=== PATIENT | female | born 1995 | race Caucasian/White ===

== ENCOUNTER 2016-09-28 03:09 | Emergency (ER) | payer SELFPAY ==
[2016-09-28 03:26] VITALS: BMI 21.5
[2016-09-28 03:41] VITALS: BP 125/72; PULSE 78; RESP 17; TEMP 98.2; O2SAT 100
[2016-09-28 04:49] LABS: BASO # 0.1 K/uL (0.0-0.2); BASO % 0.7 % (0.0-2.0); EOS % 0.6 % (0.0-4.0); HEMATOCRIT 37.5 % (34.0-47.0); LYMPH # 2.5 K/uL (1.0-4.3); LYMPH % 30.7 % (20.0-40.0); MEAN CELL VOLUME 92.3 fl (81.0-99.0); MEAN CORPUSCULAR HGB CONC 33.6 g/dL (33.0-37.0); MEAN PLATELET VOLUME 9.2 fl (7.2-11.7); MONO # 0.5 K/uL (0.0-0.8); MONO % 6.8 % (0.0-10.0); NEUT # 4.9 K/uL (1.8-7.0); NEUT % 61.2 % (50.0-75.0); NRBC % 0.1 % (0.0-0.0); RED CELL DISTRIBUTION WIDTH 12.9 % (11.5-14.5)
[2016-09-28 05:03] LABS: BLOOD UREA NITROGEN 18 mg/dl (7-17); CALCIUM 9.3 mg/dL (8.4-10.2); CARBON DIOXIDE 26 mmol/L (22-30); CHLORIDE 106 mmol/L (98-107); GFR AFRICAN-AMERICAN > 60; GLUCOSE,RANDOM 89 mg/dL (65-105); POTASSIUM 4.8 MMOL/L (3.6-5.0); SODIUM 141 mmol/l (132-148)
--- NOTE | 2016-09-28 05:38 | ED PDOC ---
HPI: Abdomen Time Seen by Provider: 09/28/16 03:57 Chief Complaint (Nursing): Abdominal Pain Chief Complaint (Provider): Left-Sided Abdominal Pain History Per: Patient History/Exam Limitations: no limitations Onset/Duration Of Symptoms: Days (x1) Location Of Pain/Discomfort: LLQ Additional Complaint(s): 3:57 Madina Abreu is a 21 year old female with a history of ovarian cysts that presents to the ED with a chief complaint of constant left-sided lower abdominal pain. Patient states that the pain does not worsen with anything, and denies any dysuria, fever, vomiting, or diarrhea. Past Medical History Reviewed: Historical Data, Nursing Documentation, Vital Signs Vital Signs: Last Vital Signs Temp 98.2 F 09/28/16 03:38 Pulse 78 09/28/16 03:38 Resp 17 09/28/16 03:38 BP 125/72 09/28/16 03:38 Pulse Ox 100 09/28/16 06:38 - Medical History PMH: Asthma (childhood asthma) Other PMH: ovarian cysts - Surgical History Surgical History: No Surg Hx - Family History Family History: States: Unknown Family Hx, Hypertension - Home Medications Home Medications: Ambulatory Orders Medication Instructions Recorded Ibuprofen [Motrin] 600 mg PO TID 7 Days 04/19/16 Nitrofurantoin Macrocrystals 100 mg PO BID #10 cap 04/19/16 [Macrobid] Nitrofurantoin Macrocrystals 100 mg PO BID #14 cap 09/28/16 [Macrobid] - Allergies Allergies/Adverse Reactions: Allergies Allergy/AdvReac Type Severity Reaction Status Date / Time No Known Allergies Allergy Verified 04/04/14 17:15 Review of Systems Constitutional: Negative for: Fever Gastrointestinal: Positive for: Abdominal Pain (llq). Negative for: Vomiting, Diarrhea Genitourinary Female: Negative for: Dysuria Physical Exam - Reviewed Nursing Documentation Reviewed: Yes Vital Signs Reviewed: Yes - Physical Exam Appears: Positive for: Non-toxic, No Acute Distress Head Exam: Positive for: ATRAUMATIC, NORMOCEPHALIC Skin: Positive for: Normal Color, Warm, Dry Eye Exam: Positive for: Normal appearance, EOMI, PERRL Cardiovascular/Chest: Positive for: Regular Rate, Rhythm. Negative for: Murmur Respiratory: Positive for: Normal Breath Sounds. Negative for: Wheezing (SAS) Gastrointestinal/Abdominal: Positive for: Soft, Tenderness (mild suprapubic tenderness and LLQ tenderness) Neurologic/Psych: Positive for: Alert, Oriented - Laboratory Results Result Diagrams: 09/28/16 04:45 09/28/16 04:45 - ECG O2 Sat by Pulse Oximetry: 100 (RA) Pulse Ox Interpretation: Normal Medical Decision Making Medical Decision Makin:15 Initial Impression: Ovarian Cysts vs. Torsion vs. UTI Initial Plan: * Urine dip * Urine preg 4:35 Patient does have a UTI as indicated by elevated nitrate levels. Ordering US Pelvis/Transvaginal to check for ovarian cysts. Urine negative. 6:37 US Pelvis Results FINDINGS: No visualized myometrial mass. The endometrium is not visualized. There is a 1.5 x 2.3 x 1.7 cm anechoic RIGHT ovarian cyst. No RIGHT ovarian torsion. There are small follicles in the LEFT ovary. There are no adnexal masses. There is no free fluid in the pelvis. IMPRESSION: There is a 1.5 x 2.3 x 1.7 cm anechoic RIGHT ovarian cyst. US Pelvis Transvaginal Results FINDINGS: Uterus/cervix: The endometrium is 7.5 mm thick. There is a trace amount of fluid in the cervical endometrial canal. No myometrial mass. Right ovary: There is anechoic 1.9 x 2 x 2 cm RIGHT ovarian cyst. No torsion. Left ovary: Unremarkable. No mass. No torsion. Free fluid: No free fluid. IMPRESSION: 1. There is anechoic 1.9 x 2 x 2 cm RIGHT ovarian cyst. 2. There is a trace amount of fluid in the cervical endometrial canal. This is a nonspecific finding and is likely of no clinical significance Scribe Attestation: Documented by Zo Gipson, acting as a scribe for Anne-Marie Whitney MD. Provider Scribe Attestation: All medical record entries made by the Scribe were at my direction and personally dictated by me. I have reviewed the chart and agree that the record accurately reflects my personal performance of the history, physical exam, medical decision making, and the department course for this patient. I have also personally directed, reviewed, and agree with the discharge instructions and disposition. Disposition - Clinical Impression Clinical Impression: UTI (urinary tract infection) - Patient ED Disposition Is Patient to be Admitted: No Doctor Will See Patient In The: Office Counseled Patient/Family Regarding: Studies Performed, Diagnosis, Need For Followup - Disposition Referrals: [facility] [place] [Outside] Disposition: Routine/Home Disposition Time: 06:50 Condition: GOOD Additional Instructions: Return for worsening. Follow up with your PCP in 2-3 days. Prescriptions: Nitrofurantoin Macrocrystals [Macrobid] 100 mg PO BID #14 cap Instructions: Urinary Tract Infection in Women (DC)
--- NOTE | 2016-09-28 09:55 | US ---
HISTORY: left pelvic pain COMPARISON: 04/19/2016 TECHNIQUE: Real-time transabdominal and transvaginal ultrasound examination of the pelvis was performed. FINDINGS: UTERUS: Measures 7.0 x 4.1 x 5.2 cm. Normal in size and appearance. No fibroid or other mass lesion seen. ENDOMETRIUM: Measures 7 mm in diameter. Unremarkable. CERVIX: No cervical masses are seen. Minimal amount of nonspecific fluid is seen in the endocervical canal, probably physiologic in a patient of this age. This could be further correlated clinically. RIGHT OVARY: Measures 2.9 x 2.6 x 2.8 cm. There is a 2 centimeter x 1.9 centimeter x 2 centimeter simple hypoechoic right ovarian cyst without internal echoes. Normal flow. LEFT OVARY: Measures 3 x 1.4 x 1.5 cm. No solid mass. Normal flow. FREE FLUID: No significant free fluid noted. OTHER FINDINGS: None. IMPRESSION: Small right ovarian simple cyst probably representing follicular cyst. No ultrasound evidence of torsion.
== END 2016-09-28 07:17 | disposition home or self-care (01) ==
LOC: H.ER 03:09
DX: N39.0 Urinary tract infection, site not specified (principal)

== ENCOUNTER 2016-12-02 18:35 | Emergency (ER) | payer BC ==
[2016-12-02 18:35] VITALS: BMI 21.5
[2016-12-02 18:42] VITALS: BP 113/58; PULSE 76; RESP 18; TEMP 98.6; O2SAT 98
--- NOTE | 2016-12-02 19:05 | ED PDOC ---
HPI: Female Pain Time Seen by Provider: 12/02/16 18:47 Chief Complaint (Nursing): Female Genitourinary Chief Complaint (Provider): Vaginal bleeding History Per: Patient History/Exam Limitations: no limitations Onset/Duration Of Symptoms: Days Current Symptoms Are (Timing): Still Present Severity: Moderate Pain Scale Rating Of: 5 Additional Complaint(s): Suprapubic pressure. Dysuria for 2 days. No fever/chills. No back pain. Past Medical History Reviewed: Historical Data, Nursing Documentation, Vital Signs Vital Signs: Last Vital Signs Temp 98.6 F 12/02/16 18:36 Pulse 76 12/02/16 18:36 Resp 18 12/02/16 18:36 BP 113/58 L 12/02/16 18:36 Pulse Ox 98 12/02/16 18:36 - Medical History PMH: Asthma (childhood asthma) - Surgical History Surgical History: No Surg Hx - Family History Family History: States: Unknown Family Hx, Hypertension - Living Arrangements Living Arrangements: With Family - Social History Current smoker - smoking cessation education provided: No - Home Medications Home Medications: Ambulatory Orders Medication Instructions Recorded Ibuprofen [Motrin] 600 mg PO TID 7 Days 04/19/16 Nitrofurantoin Macrocrystals 100 mg PO BID #10 cap 04/19/16 [Macrobid] Nitrofurantoin Macrocrystals 100 mg PO BID #14 cap 09/28/16 [Macrobid] Ciprofloxacin [Cipro] 500 mg PO BID #10 tab 12/02/16 - Allergies Allergies/Adverse Reactions: Allergies Allergy/AdvReac Type Severity Reaction Status Date / Time No Known Allergies Allergy Verified 04/04/14 17:15 Review of Systems ROS Statement: Except As Marked, All Systems Reviewed And Found Negative Genitourinary Female: Positive for: Dysuria, Frequency. Negative for: Vaginal Bleeding, Pelvic Pain Musculoskeletal: Positive for: Back Pain Physical Exam - Reviewed Nursing Documentation Reviewed: Yes Vital Signs Reviewed: Yes - Physical Exam Appears: Positive for: Well, Non-toxic, No Acute Distress Head Exam: Positive for: ATRAUMATIC, NORMAL INSPECTION, NORMOCEPHALIC Skin: Positive for: Normal Color, Warm, DRY Eye Exam: Positive for: Normal appearance ENT: Positive for: Normal ENT Inspection Neck: Positive for: Normal, Painless ROM Cardiovascular/Chest: Positive for: Regular Rate, Rhythm Respiratory: Positive for: Normal Breath Sounds. Negative for: Accessory Muscle Use, Respiratory Distress Gastrointestinal/Abdominal: Positive for: Normal Exam, Bowel Sounds, Soft. Negative for: Tenderness Back: Positive for: Normal Inspection. Negative for: L CVA Tenderness, R CVA Tenderness Extremity: Positive for: Normal ROM Neurologic/Psych: Positive for: Alert, Oriented - ECG O2 Sat by Pulse Oximetry: 98 Pulse Ox Interpretation: Normal Disposition - Clinical Impression Clinical Impression: UTI (urinary tract infection) - Patient ED Disposition Is Patient to be Admitted: No Counseled Patient/Family Regarding: Diagnosis, Need For Followup, Rx Given - Disposition Referrals: Former[facility] [place] [Outside] Disposition: Routine/Home Disposition Time: 19:45 Condition: GOOD Prescriptions: Ciprofloxacin [Cipro] 500 mg PO BID #10 tab Instructions: Urinary Tract Infection in Women (ED)
== END 2016-12-02 20:05 | disposition home or self-care (01) ==
LOC: H.ER 18:35
DX: N39.0 Urinary tract infection, site not specified (principal)

== ENCOUNTER 2017-06-20 20:20 | Emergency (ER) | payer BC, MEDICAID, OTHER ==
[2017-06-20 21:00] VITALS: BMI 25.3
[2017-06-21 01:38] VITALS: BP 120/68; PULSE 85; RESP 16; TEMP 98.8; O2SAT 100
--- NOTE | 2017-06-21 07:51 | OBHP ---
Datetime: 06/20/2017 20:45 IP Adm Impression: , intrauterine ; No Active Labor IP Admit Plan: Observation/Evaluation; Discharge home Admit Comment, IP Provider: Patient IUP 31.2 weeks presents c/o cramping lower abdominal pain s elizabeth last night, no radiated, no associated with any event. No lof, ctx, vb, +FM. Denies recent fever , nausea, vomiting, no urinary symptoms, diarrhea, no fall or trauma. PNC: [facility] PMH: Asthma. FMH: denies PSH: none Meds: PNV, Iron. NKDA SH: -etoh, tobacco, drugs. VS: wnl VE: closed/thick/high. TOCO: 150/mod eric/15 x 15/ cat I/ no dec A/P: Patient IUP 31.2 weeks with lower abd pain, no active labor. /maternal monitoring. Reeval. Case discussed with Dr Nguyen, OB hospitalist shoulder boner. [place] PGY 1. Addendum by Dr. Nguyen: I have evaluated the patient independently and I agree with the above. Fay geronimo is a 31.3 wks with lower abdominal pain, no other signs of labor. VE=closed/thick/high, FHR= 150 mod eric, =accels, TOCO = irritability. Patient ruled out for labor and chorio, discharge home, la bor precautions given Pelvic Type - PN: Adequate Extremities - PN: Normal Abdomen - PN: Normal Back - PN: Not Done Breast - PN: Not Done Lungs - PN: Normal Heart - PN: Normal Thyroid - PN: Normal Neurologic - PN: Normal HEENT - PN: Normal General - PN: Normal FHR - Baseline A Provider: 150 EGA AdmitDate IP: 31.2 Vital Signs Provider: Reviewed; Within Normal Limits IP Chief Complaint: Maternal discomfort NICHD Variability Prov Fetus A: Moderate 6-25bpm NICHD Accel Fetus A IP Provider: 10X10 FHR Category Provider Fetus A: Category I Dilatation, Provider: closed Effacement, Provider: thick Station, Provider: high Genitourinary Exam: Not Done DTRs - PN: Not Done
== END 2017-06-20 21:30 | disposition home or self-care (01) ==
LOC: H.EROB2 20:20
DX: O26.93 Pregnancy related conditions, unspecified, third trimester (principal); R10.2 Pelvic and perineal pain; O47.03 False labor before 37 completed weeks of gestation, third trimester; Z3A.31 31 weeks gestation of pregnancy

== ENCOUNTER → 2017-08-10 | Emergency (ER) | payer MEDICAID | END | disposition home or self-care (01) | LOC: H.EROB2 23:17 | DX: O26.93 Pregnancy related conditions, unspecified, third trimester (principal); R10.2 Pelvic and perineal pain; O47.1 False labor at or after 37 completed weeks of gestation; Z3A.38 38 weeks gestation of pregnancy ==